=== PATIENT | female | born 1935 | race Caucasian/White ===

== ENCOUNTER 2017-05-09 11:09 | Emergency (ER) | payer OTHER ==
[~2017-05-09] VITALS: Ht 152.4 cm; Wt 68.0 kg
--- NOTE | ~2017-05-09 | CR252 ---
[facility] A Service of [facility] RADIOLOGY TEXT RESULTS PATIENT: ROSA CORREIA LOCATION: [facility] : 36 UNIT #: [id number] AGE: [address]: Fausto Rivera MD SEX: F ORDER DR: [id number] [facility] [address] [place], [place] [address] [id number] E MR#: [id number] Acc #: [id number] NAME: ROSA CORREIA : 1935 SEX: F STUDY DATE/TIME: 05/09/2017 13:59 UNIT: OLIVIA ROOM: STUDY DESCRIPTION: CR Tibia and Fibula 2 Views Lt Attending Physician: Fausto Rivera M.D. Ordering Physician: Juan Diego [id number] Matthew Castro Primary Care Physician: Jackson Bain M.D. MEDICAL IMAGING REPORT This report is preliminary unless electronic signature is present EXAM Left tibia and fibula, 05/09/2017 1359 hours CLINICAL HISTORY 82-year-old woman who fell today complaining of lateral ankle and pain and posterior lower leg pain. COMPARISON None. FINDINGS AP, lateral and oblique views demonstrate anterolateral pain over the distal lower leg. There is no definite fracture or dislocation. IMPRESSION There is anterolateral soft tissue swelling distally with no definite fracture of the tibia or fibula. Dictated by... Juli Appiah M.D. THIS IS AN ELECTRONICALLY VERIFIED REPORT Juli Appiah M.D. at 05/10/2017 9:16 AM KARLEY/sakina TD: 05/09/2017 21:25 JOB #: [id number] MEDICAL IMAGING REPORT Page 1 of 1 COPY
--- NOTE | ~2017-05-09 | CT71 ---
[facility] A Service of [facility] RADIOLOGY TEXT RESULTS PATIENT: ROSA CORREIA LOCATION: [facility] : 36 UNIT #: [id number] AGE: [address]: Fausto Rivera MD SEX: F ORDER DR: [id number] [facility] [address] [place], [place] [address] [id number] E MR#: [id number] Acc #: [id number] NAME: ROSA CORREIA : 1935 SEX: F STUDY DATE/TIME: 05/09/2017 13:42 UNIT: [facility] ROOM: STUDY DESCRIPTION: CT Head Wo Contrast Attending Physician: Fausto Rivera M.D. Ordering Physician: Erlinda Brewer M.D. Primary Care Physician: Jackson Bain M.D. MEDICAL IMAGING REPORT This report is preliminary unless electronic signature is present EXAM CT head without contrast dated 05/09/2017. COMPARISON CT head without contrast dated 05/16/2014. HISTORY Patient fell in bathroom last night. Headache, loss of consciousness. TECHNIQUE CT of the head was obtained without contrast in the axial plane as per the protocol. This CT exam was performed with one or more of the following radiation dose reduction techniques: automatic exposure control, adjustment of mA and/or kV according to patient size, and iterative reconstruction. FINDINGS No acute intracranial hemorrhage, space occupying mass, mass effect, midline shift, or hydrocephalus. Patchy hypodensities are noted in the periventricular white matter, subcortical white matter, right caudate head. Atherosclerotic arteriovascular calcifications are noted in bilateral intracranial internal carotid arteries and vertebral arteries. Nasal septum is deviated to the left. Mastoid air cells, paranasal sinuses do not demonstrate any significant abnormality. Bones, orbits with the ocular structures do not demonstrate any significant abnormality either. Status post bilateral cataract surgery. There is asymmetrical soft tissue swelling noted in the right parietal scalp without underlying fracture. IMPRESSION 1. 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 They are predominantly stable in the last three years. 2. There is soft tissue asymmetrical swelling noted in the right parietal scalp convexity, close to the posterior right frontal scalp. No underlying fracture. Correlate with site of injury. Dictated by... Lebron Nayak M.D. THIS IS AN ELECTRONICALLY VERIFIED REPORT Lebron Nayak M.D. at 05/10/2017 7:04 PM CPR/tmw TD: 05/09/2017 21:36 JOB #: [id number] MEDICAL IMAGING REPORT Page 1 of 1 COPY
--- NOTE | ~2017-05-09 | CR20 ---
[facility] A Service of [facility] RADIOLOGY TEXT RESULTS PATIENT: ROSA CORREIA LOCATION: [facility] : 36 UNIT #: [id number] AGE: [address]: Fausto Rivera MD SEX: F ORDER DR: [id number] [place] [id number] [facility] [place], [place] [address] [id number] E MR#: [id number] Acc #: [id number] NAME: ROSA CORREIA : 1935 SEX: F STUDY DATE/TIME: 05/09/2017 1359 UNIT: [facility] ROOM: STUDY DESCRIPTION: CR Ankle Min 3 Views Lt Attending Physician: Fausto Rivera M.D. Ordering Physician: Juan Diego Castro M.D. Primary Care Physician: Jackson Bain M.D. MEDICAL IMAGING REPORT This report is preliminary unless electronic signature is present EXAM Left ankle, 3 views, 05/09/2017, 1359 hours. CLINICAL HISTORY Patient fell today complaining of anterolateral ankle pain. COMPARISON None FINDINGS AP, lateral, and oblique views demonstrate lateral and anterior soft tissue swelling. There is a small avulsion fracture from the anterior dorsal talus which appears acute. No fracture of the distal fibula or tibia. IMPRESSION There is anterolateral soft tissue swelling with a small avulsion fracture seen at the dorsal aspect of the distal talus on the lateral view. The tibia and fibula appear intact. Dictated by... Juli Appiah M.D. THIS IS AN ELECTRONICALLY VERIFIED REPORT Juli Appiah M.D. at 05/10/2017 9:16 AM KARLEY/tatiana TD: 05/09/2017 21:15 JOB #: [id number] MEDICAL IMAGING REPORT [facility] A Service [facility] RADIOLOGY TEXT RESULTS PATIENT: ROSA CORREIA LOCATION: [facility] : 36 UNIT #: [id number] AGE: [address]: Fausto Rivera MD SEX: F ORDER DR: Page 1 of 1 COPY
[~2017-05-09 11:09] MED LIST: ACTONEL; ASPIRIN EC81 M1 PO; ASPIRINEC; ATIVAN PO; BONIVA150 MG PO; CALCIUM + D 6001 TA1 PO; CALCIUM 500 + D1 TAB; CALCIUM 500 +1 EAC2 PO; CHEWABLE ASPIRI81 MG PO; ECOTRIN81 M1 PO; ELIQUIS5 MG PO; LASIX20 MG PO; LIPITOR; LISINOPRIL; LISINOPRIL PO; LISINOPRIL10 MG PO; LISINOPRIL20 MG PO; LORAZEPAM1 MG PO; METOPROLOL TAR25 MG PO; METOPROLOL TART25 MG PO; MULTI-VITAMIN1 TAB; NORVASC PO; OMEPRAZOLE20 M2 PO; PRILOSEC; SIMVASTATIN80 MG PO; VIT E PO; VITAMIN E400 UNI2 PO; VITAMIN E400 UNI4 PO; VYTORIN 10/80 T1 TAB PO; ZOCOR PO
== END 2017-05-09 15:46 | disposition home or self-care (01) ==
LOC: CED 11:09
DX: S92.102A Unspecified fracture of left talus, initial encounter for closed fracture (principal); S00.03XA Contusion of scalp, initial encounter; Z95.1 Presence of aortocoronary bypass graft; I10 Essential (primary) hypertension; Z88.0 Allergy status to penicillin; Z88.2 Allergy status to sulfonamides; Z88.1 Allergy status to other antibiotic agents; Z79.82 Long term (current) use of aspirin; Z79.899 Other long term (current) drug therapy; W01.0XXA Fall on same level from slipping, tripping and stumbling without subsequent striking against object, initial encounter
CPT/HCPCS: 29540; 70450; 73590; 73610; 99284